=== PATIENT | female | born 1935 | race Asian ===

== ENCOUNTER 2024-03-21 11:35 | Inpatient (IN) | payer MEDICARE, OTHER ==
[~2024-03-21] VITALS: Ht 167.6 cm; Wt 49.1 kg
[2024-03-21 13:48] LABS: Basophils # (auto) 0 10 ^3/uL (0-0.2); Basophils % (auto) 0.4 % (0.0-2.0); Eosinophils # (auto) 0 10 ^3/uL (0-0.8); Eosinophils % (auto) 0.5 % (0.0-7.0); Hemoglobin 12.9 g/dL (12.2-16.2); Lymphocytes # (auto) 0.7 10 ^3/uL (0.4-5.4); Lymphocytes % (auto) 9.8 % (10.0-50.0); Mean Corpuscular Hemoglobin 29.9 pg (28.0-32.0); Mean Corpuscular Hgb Conc. 33.9 g/dL (32.0-36.0); Mean Corpuscular Volume 88.3 fL (80.0-100.0); Monocytes # (auto) 0.4 10 ^3/uL (0-1.3); Monocytes % (auto) 5.6 % (0.0-12.0); Neutrophils # (auto) 5.9 10 ^3/uL (1.6-8.6); Neutrophils % (auto) 83.7 % (37.0-80.0); Platelet Count (auto) 279 10^3/uL (140-450); Red Cell Distribution Width 12.8 % (11.8-14.3)
[2024-03-21 13:57] LABS: Chloride 100 mmol/L (98-107); Potassium 4.1 mmol/L (3.5-5.1); Sodium 134 mmol/L (136-145)
[2024-03-21 13:58] LABS: Anion Gap 6 (5-15); Calcium 9.9 mg/dL (8.7-10.4); Carbon Dioxide 28 mmol/L (20-30)
[2024-03-21 14:03] LABS: BUN/Creatinine Ratio 12.8 (10.0-20.0); Blood Urea Nitrogen 10 mg/dL (9-23); Glucose 110 mg/dL (74-106)
[2024-03-21 14:11] LABS: Urine Bacteria None Seen /hpf (None Seen)
[2024-03-21 14:40] LABS: Urine Blood Negative /uL (Negative); Urine Clarity Clear (Clear); Urine Color Light-Yellow (Yellow); Urine Hyaline Cast MOD /lpf (0 - 2); Urine Mucus FEW (None Seen); Urine Protein, UAD TRACE (Negative); Urine Specific Gravity 1.012 (1.001-1.035); Urine Urobilinogen Normal (Negative); Urine WBC 2 /hpf (0 - 5)
[2024-03-21] MEDS ORDERED: MORPHINE SULFATE INJ 2 MG/ml SYRG IV PRN (15:30)
[2024-03-21] MEDS ORDERED: ONDANSETRON HCL 4 MG/2 ML VIAL IV PRN (15:30)
[2024-03-21] MEDS ORDERED: ACETAMINOPHEN 325 MG TAB PO PRN (15:30)
[2024-03-21] MEDS ORDERED: NITROGLYCERIN 0.4 MG SL TAB SL PRN (15:30)
[2024-03-21] MEDS: cloNIDine HCL 0.1 MG TAB PO PRN (15:50)
[2024-03-21 19:35] VITALS: PULSE 61; RESP 14; O2SAT 98
[2024-03-21] MEDS: ATORVASTATIN 20 MG TAB PO SCH (22:00)
[2024-03-21 22:20] VITALS: BP 153/47; PULSE 65; RESP 15; TEMP 98.1; O2SAT 99
[2024-03-21 22:37] VITALS: BP 153/47; PULSE 65; RESP 15; TEMP 98.1; O2SAT 99
[2024-03-22] VITALS (7 sets, daily range): BP systolic 115–172; BP diastolic 46–64; PULSE 60–76; RESP 14–20; TEMP 97.5–98; O2SAT 92–98
[2024-03-22] MEDS ORDERED: MELO15TA29 PO (05:14)
[2024-03-22] MEDS ORDERED: LOSA-534 PO (05:14)
[2024-03-22] MEDS ORDERED: LEVO112T4 PO (05:14)
[2024-03-22] MEDS ORDERED: FLUO-470 PO (05:14)
[2024-03-22] MEDS ORDERED: CETI-120 PO (05:14)
[2024-03-22] MEDS ORDERED: ATOR40TA52 PO (05:14)
[2024-03-22] MEDS ORDERED: FLUT50SP NAS (05:14)
[2024-03-22 06:05] LABS: Chloride 102 mmol/L (98-107); Potassium 3.9 mmol/L (3.5-5.1); Sodium 135 mmol/L (136-145)
[2024-03-22 06:06] LABS: Anion Gap 4 (5-15); Calcium 9.2 mg/dL (8.7-10.4); Carbon Dioxide 29 mmol/L (20-30)
[2024-03-22 06:11] LABS: BUN/Creatinine Ratio 16.4 (10.0-20.0); Blood Urea Nitrogen 12 mg/dL (9-23); Glucose 89 mg/dL (74-106)
[2024-03-22] MEDS: ENOXAPARIN SOD 40 MG/0.4 ML SYRINGE SC SCH (10:22)
[2024-03-22] MEDS: LOSARTAN POTASSIUM 50 MG TAB PO SCH (10:22)
[2024-03-22 13:04] LABS: Albumin 3.8 g/dL (3.2-4.8); Bilirubin, Direct 0.2 mg/dL (<0.3); Bilirubin, Total 0.7 mg/dL (0.2-1.0); Total Protein 5.7 g/dL (5.7-8.2)
[2024-03-22 18:57] LABS: Free T3 2.97 pg/mL (2.3-4.2); Free T4 (Free Thyroxine) 1.53 ng/dL (0.89-1.76)
[2024-03-23] VITALS (11 sets, daily range): BP systolic 110–177; BP diastolic 34–75; PULSE 54–68; RESP 14–19; TEMP 97.6–98.3; O2SAT 98–100
[2024-03-23] MEDS: IOHEXOL 350 MG/ML 100ML IJ ONE (07:35)
[2024-03-24 05:00] VITALS: BP 144/71; PULSE 58; RESP 18; TEMP 97.8; O2SAT 99
[2024-03-24 07:30] VITALS: PULSE 54
[2024-03-24 09:14] VITALS: BP 151/53; PULSE 51; RESP 21; TEMP 97.6; O2SAT 99
[2024-03-24 11:22] VITALS: BP 151/53; PULSE 51; RESP 21; TEMP 97.6; O2SAT 99
[2024-03-24 13:00] VITALS: BP 123/72; PULSE 57; RESP 19; TEMP 97.9; O2SAT 98
== END 2024-03-24 17:40 | disposition home or self-care (01) | DRG 641 ==
LOC: EDBD 11:35 → ER 11:35 → TELE-WESTW 15:22 → TELE 15:22 → TELE-WESTW 22:20
PROVIDERS: ADMIT Nurse Practitioner; ATTEND Family Medicine
DX: E86.0 Dehydration (principal); I65.21 Occlusion and stenosis of right carotid artery; E03.9 Hypothyroidism, unspecified; E78.5 Hyperlipidemia, unspecified; I10 Essential (primary) hypertension; R00.1 Bradycardia, unspecified; I34.81 Nonrheumatic mitral (valve) annulus calcification; I70.0 Atherosclerosis of aorta
CPT/HCPCS: 36415; 70450; 71275; 80048; 80076; 81001; 84439; 84443; 84481; 84484; 85025; 85379; 93005; 93306; 93886; 99291; G0378